=== PATIENT | female | born 1970 | race Caucasian/White ===

== ENCOUNTER 2021-11-18 08:29 | Day surgery (SDC) | payer BC ==
[~2021-11-18 08:29] MED LIST: Albuterol 0.083% 2.5 MG/3 ML Neb Soln NEB PRN; HYDROmorphone 1 MG/ML Syringe IVPUSH PRN; Lactated Ringers 1,000 ML IV SCH; Metoclopramide 10 MG/2 ML SDV IVPUSH PRN; Naloxone 0.4 MG/ML SDV IVPUSH PRN; Ondansetron 4 MG/2 ML SDV IVPUSH PRN; Scopolamine 1.5 MG Transdermal Patch TOP ONE; Sodium Chloride 0.9% 10 ML Syringe FLUSH PRN; Sodium Chloride 0.9% 2.5 ML Syringe FLUSH PRN; Sodium Chloride 0.9% 20 ML SDV IV PRN; ceFAZolin 1 GM in Premix Bag 1 BAG IV ONE; fentaNYL 50 MCG/ML SDV IVPUSH PRN
[2021-11-18] MEDS ORDERED: propofoL 0 ML ONE (08:30)
[2021-11-18] MEDS ORDERED: Dexamethasone 4 MG/ML 5 ML MDV ONE (08:31)
[2021-11-18] MEDS ORDERED: Rocuronium Bromide 50 MG/5 ML Syringe ONE ×2 (08:31→10:15)
[2021-11-18] MEDS ORDERED: Dexmedetomidine 200 MCG/2 ML SDV ONE (08:31)
[2021-11-18] MEDS ORDERED: Lidocaine 2% 5 ML SDV ONE ×2 (08:31→08:53)
[2021-11-18] MEDS ORDERED: Ondansetron 4 MG/2 ML SDV ONE ×2 (08:37→10:24)
[2021-11-18] MEDS ORDERED: fentaNYL 100 MCG/2 ML SDV ONE ×2 (08:37→09:49)
[2021-11-18] MEDS ORDERED: Methylene Blue 50 MG/10 ML Ampule ONE (08:48)
[2021-11-18] MEDS ORDERED: Bupivacaine 0.25% 30 ML SDV ONE (08:49)
[2021-11-18] MEDS ORDERED: Scopolamine 1.5 MG Transdermal Patch ONE (08:51)
[2021-11-18] MEDS ORDERED: Magnesium Sulfate (4.06 MEQ/ML) 5 GM/10 ML SDV ONE (08:53)
[2021-11-18] MEDS ORDERED: Ketamine 500 mg/10 ML MDV ONE (08:53)
[2021-11-18] MEDS ORDERED: ceFAZolin 1 GM in Premix Bag 1 BAG IV ONE (09:00)
[2021-11-18] MEDS ORDERED: Glycopyrrolate 0.2 MG/ML SDV ONE (09:36)
[2021-11-18] MEDS ORDERED: Ketorolac 30 MG/ML SDV ONE (10:24)
[2021-11-18] MEDS ORDERED: Sugammadex Sodium 200 MG/2 ML VIAL ONE (10:24)
[2021-11-18] MEDS ORDERED: Propofol 200 MG/20 ML SDV ONE ×2 (10:36→10:57)
[2021-11-18] MEDS ORDERED: HYDROmorphone 2 MG/ML Syringe ONE (10:46)
[2021-11-18] MEDS ORDERED: Furosemide 40 MG/4 ML VIAL ONE (10:54)
[2021-11-18] MEDS ORDERED: Fluorescein 5 ML Vial ONE (10:55)
[2021-11-18] MEDS ORDERED: propofoL 100 ML ONE (10:56)
[2021-11-18] MEDS ORDERED: Morphine 4 MG/ML Syringe IVPUSH PRN (11:32)
[2021-11-18] MEDS ORDERED: Ketorolac 30 MG/ML SDV IVPUSH ONE (11:32)
[2021-11-18] MEDS ORDERED: Promethazine 25 MG/ML SDV IM PRN (11:32)
[2021-11-18] MEDS ORDERED: Acetaminophen/oxyCODONE 325-5 MG Tab PO PRN ×2 (11:32)
[2021-11-18] MEDS ORDERED: Ondansetron 4 MG/2 ML SDV IVPUSH PRN (11:32)
[2021-11-18] MEDS ORDERED: Belladonna Alkaloids/Opium 16.2-30 MG Supp RECTAL PRN (11:35)
[2021-11-18] MEDS: fentaNYL 50 MCG/ML SDV IVPUSH PRN ×2 (11:43→11:53)
[2021-11-18] MEDS ORDERED: Lactated Ringers 1,000 ML IV SCH (11:45)
[2021-11-18] MEDS: Docusate Sodium 100 MG Cap PO SCH (20:21)
[2021-11-19] MEDS: Ketorolac 30 MG/ML SDV IVPUSH PRN ×2 (05:25→11:44)
[2021-11-19 05:51] LABS: CARBON DIOXIDE,CO2 26.8 mmol/L (21.0-32.0); POTASSIUM,K 4.2 mmol/L (3.5-5.1)
[2021-11-19] MEDS: Docusate Sodium 100 MG Cap PO SCH (10:11)
== END 2021-11-19 11:58 | disposition home or self-care (01) ==
LOC: MW.SDS 08:29 → MW.MS 11:41 → MW.SDS 11-19 11:58
PROVIDERS: ATTEND Obstetrics & Gynecology
DX: D25.1 Intramural leiomyoma of uterus (principal); D25.0 Submucous leiomyoma of uterus; D25.2 Subserosal leiomyoma of uterus; N83.8 Other noninflammatory disorders of ovary, fallopian tube and broad ligament; N88.8 Other specified noninflammatory disorders of cervix uteri; N93.9 Abnormal uterine and vaginal bleeding, unspecified; N72 Inflammatory disease of cervix uteri; Z88.2 Allergy status to sulfonamides; Z79.899 Other long term (current) drug therapy
CPT/HCPCS: 36415; 58552; 80048; 85025; 86850; 86900; 86901; A9270; J0131; J1100; J1170; J1885; J1940; J2405; J2704; J3010; J3475; J3490; J7030; J7120; 00944